=== PATIENT | female | born 1945 | race Asian ===

== ENCOUNTER 2017-03-23 09:16 | Day surgery (SDC) | payer MEDICARE, OTHER ==
[~2017-03-23] VITALS: Ht 160 cm; Wt 79.5 kg
[~2017-03-23 09:16] MED LIST: ASPI81 PO; ATOR10TA84 PO; CETI-260 PO; DICLOFENAC SODIUM 0.1% 2.5 ML OPHTHALMIC SOLUTION OD ONE; FOSI10 PO; METF500T4 PO; METO1TAB13 PO; MOXIFLOXACIN HCL 0.5% 3 ML OPHTHALMIC SOLUTION OD ONE; NIFE-4 PO; RINGERS SOLUTION,LACTATED 500 ML IV ONE; SITA25 PO; TELM20 PO
[2017-03-23] MEDS ORDERED: DICLOFENAC SODIUM 0.1% 2.5 ML OPHTHALMIC SOLUTION ONE (09:24)
[2017-03-23] MEDS ORDERED: MOXIFLOXACIN HCL 0.5% 3 ML OPHTHALMIC SOLUTION ONE (09:25)
[2017-03-23] MEDS ORDERED: TROPICAMIDE 1% 2 ML OPHTHALMIC SOLUTION ONE (09:25)
[2017-03-23] MEDS ORDERED: PHENYLEPHRINE HCL 2.5% 2 ML OPHTHALMIC SOLUTION ONE (09:25)
[2017-03-23] MEDS ORDERED: RINGERS SOLUTION,LACTATED 500 ML IV ONE (09:26)
[2017-03-23 10:13] LABS: GLUCOSE,POINT OF CARE 141 MG/DL (70-110)
[2017-03-23] MEDS: PHENYLEPHRINE HCL 2.5% 2 ML OPHTHALMIC SOLUTION OD SCH ×2 (10:18→10:23)
[2017-03-23] MEDS: TROPICAMIDE 1% 2 ML OPHTHALMIC SOLUTION OD SCH ×2 (10:18→10:23)
[2017-03-23] MEDS ORDERED: TETRACAINE HCL VISCOUS 0.5% 0.6 ML OPHTHALMIC SOLUTION OD ONE (12:00)
[2017-03-23] MEDS ORDERED: HYALURONATE SOD/CHONDROITIN SOD 0.5 ML VIAL IO ONE (12:00)
[2017-03-23] MEDS ORDERED: DEXAMETHASONE SOD PHOS 4 MG/ML VIAL IVP ONE (12:00)
[2017-03-23] MEDS ORDERED: POVIDONE-IODINE 10% 15 ML SOLUTION UD TP ONE (12:00)
[2017-03-23] MEDS ORDERED: FentaNYL CITRATE-PF 100 MCG/2 ML VIAL IVP ONE (12:00)
[2017-03-23] MEDS ORDERED: LIDOCAINE HCL/PF 1% 2 ML VIAL INJ ONE (12:00)
[2017-03-23] MEDS ORDERED: MIDAZOLAM HCL 2 MG/2 ML VIAL IVP ONE (12:00)
[2017-03-23] MEDS ORDERED: HYALURONATE SODIUM 12 MG/ML 0.8 ML SYRINGE IO ONE (12:00)
== END 2017-03-23 13:25 | disposition home or self-care (01) ==
LOC: SURGERY 09:16
PROVIDERS: ATTEND Specialist
DX: E11.36 Type 2 diabetes mellitus with diabetic cataract (principal); H25.011 Cortical age-related cataract, right eye; I10 Essential (primary) hypertension; E78.00 Pure hypercholesterolemia, unspecified; I44.0 Atrioventricular block, first degree; E66.3 Overweight; Z88.8 Allergy status to other drugs, medicaments and biological substances; Z98.890 Other specified postprocedural states; Z90.710 Acquired absence of both cervix and uterus
CPT/HCPCS: 66984; 82962; 93005; C1780; J1100; J2250; J3010; J3490 ×2; J7120

== ENCOUNTER → 2017-05-13 | Outpatient (CLI) | payer MEDICARE, OTHER ==
[~2017-05-13] MED LIST changes: -CETI-260 PO; +CETI-290 PO; -DICLOFENAC SODIUM 0.1% 2.5 ML OPHTHALMIC SOLUTION OD ONE; -MOXIFLOXACIN HCL 0.5% 3 ML OPHTHALMIC SOLUTION OD ONE; -RINGERS SOLUTION,LACTATED 500 ML IV ONE
[2017-05-13 09:17] LABS: BASOPHILS # (AUTO) 0.02 K/uL (0.00-0.20); BASOPHILS % (AUTO) 0.3 % (0.0-2.0); EOSINOPHILS % (AUTO) 1.64 % (1.0-6.0); HEMATOCRIT 33.9 % (36-46); HEMOGLOBIN 10.8 g/dL (12.0-16.0); LYMPHOCYTES # (AUTO) 1.9 K/uL (1.0-4.8); LYMPHOCYTES % (AUTO) 30.4 % (22.0-44.0); MEAN CORPUSCULAR HGB CONC 31.8 G/dL (31.0-37.0); MEAN CORPUSCULAR VOLUME 69 fL (80-100); MONOCYTES # (AUTO) 0.4 K/uL (0.1-1.0); MONOCYTES % (AUTO) 7.1 % (2.0-9.0); NEUTROPHILS # (AUTO) 3.8 K/uL (1.8-7.7); NEUTROPHILS % (AUTO) 60.7 % (40.0-70.0); PLATELET COUNT (AUTO) 217 K/uL (150-450); RED BLOOD CELL COUNT(AUTO) 4.89 MIL/uL (4.00-5.20); RED CELL DISTRIBUTION WIDTH 15.5 % (11.5-14.5); WHITE BLOOD COUNT (AUTO) 6.3 K/uL (4.5-11.0)
[2017-05-13 09:30] LABS: RBC MORPHOLOGY COMMENT ABNORMAL RBC MORPH
[2017-05-13 10:20] LABS: HEMOGLOBIN A1C 7.8 % (4.5-6.2)
[2017-05-13 10:27] LABS: ALBUMIN 3.5 g/dL (3.4-5.0); BILIRUBIN,TOTAL 0.5 mg/dL (0.1-1.0); CHOL/HDL RATIO 3.5 (3.9-5.7); CREATININE 1.4 mg/dL (0.60-1.30); POTASSIUM 4.7 mmol/L (3.5-5.1); THYROID STIMULATING HORMONE 1.37 uIU/mL (0.36-3.74); TOTAL PROTEIN, SERUM 8.5 g/dL (6.4-8.2)
[2017-05-17 16:10] LABS: CREATININE, URINE (mALB) 56.7 mg/dL (Not Estab.)
== END | disposition home or self-care (01) ==
LOC: LABPV 08:31
PROVIDERS: ATTEND Internal Medicine
DX: E11.9 Type 2 diabetes mellitus without complications (principal); I10 Essential (primary) hypertension; E78.2 Mixed hyperlipidemia
CPT/HCPCS: 82043; 82570; 83036; 84443

== ENCOUNTER → 2018-02-20 | Outpatient (CLI) | payer MEDICARE, OTHER ==
[~2018-02-20] MED LIST changes: -METF500T4 PO; +METF500T6 PO
[2018-02-20 10:53] LABS: BASOPHILS % (AUTO) 1.1 % (0.0-2.0); EOSINOPHILS % (AUTO) 2.9 % (1.0-6.0); HEMATOCRIT 34.1 % (36-46); HEMOGLOBIN 11.1 g/dL (12.0-16.0); LYMPHOCYTES # (AUTO) 1.7 K/uL (1.0-4.8); MEAN CORPUSCULAR HEMOGLOBIN 22.4 pg (26.0-34.0); MEAN CORPUSCULAR HGB CONC 32.4 G/dL (31.0-37.0); MEAN CORPUSCULAR VOLUME 69 fL (80-100); MONOCYTES # (AUTO) 0.4 K/uL (0.1-1.0); MONOCYTES % (AUTO) 8.9 % (2.0-9.0); NEUTROPHILS # (AUTO) 2.5 K/uL (1.8-7.7); NEUTROPHILS % (AUTO) 52.1 % (40.0-70.0); PLATELET COUNT (AUTO) 188 K/uL (150-450); RED BLOOD CELL COUNT(AUTO) 4.94 MIL/uL (4.00-5.20); RED CELL DISTRIBUTION WIDTH 15.4 % (11.5-14.5)
[2018-02-20 11:25] LABS: ALBUMIN 3.5 g/dL (3.4-5.0); BILIRUBIN,TOTAL 0.5 mg/dL (0.1-1.0); CALCIUM, TOTAL 9.3 mg/dL (8.8-10.5); CHOL/HDL RATIO 3.5 (3.9-5.7); CREATININE 1.69 mg/dL (0.60-1.30); POTASSIUM 4.8 mmol/L (3.5-5.1); THYROID STIMULATING HORMONE 1.41 uIU/mL (0.36-3.74); TOTAL PROTEIN, SERUM 8.1 g/dL (6.4-8.2)
[2018-02-20 11:37] LABS: HEMOGLOBIN A1C 6.3 % (4.5-6.2)
== END | disposition home or self-care (01) ==
LOC: LABPV 07:51
PROVIDERS: ATTEND Internal Medicine
DX: I12.9 Hypertensive chronic kidney disease with stage 1 through stage 4 chronic kidney disease, or unspecified chronic kidney disease (principal); E11.9 Type 2 diabetes mellitus without complications; E78.5 Hyperlipidemia, unspecified
CPT/HCPCS: 83036; 84443

== ENCOUNTER → 2018-06-26 | Outpatient (CLI) | payer MEDICARE, OTHER ==
[~2018-06-26] MED LIST changes: -FOSI10 PO; +FOSI10TA3 PO; +METF-960 PO; -METF500T6 PO
[2018-06-26 10:48] LABS: BASOPHILS % (AUTO) 0.6 % (0.0-2.0); EOSINOPHILS % (AUTO) 1.1 % (1.0-6.0); HEMATOCRIT 32.9 % (36-46); HEMOGLOBIN 10.2 g/dL (12.0-16.0); LYMPHOCYTES # (AUTO) 1.3 K/uL (1.0-4.8); LYMPHOCYTES % (AUTO) 35.4 % (22.0-44.0); MEAN CORPUSCULAR HEMOGLOBIN 22.8 pg (26.0-34.0); MEAN CORPUSCULAR HGB CONC 31.1 G/dL (31.0-37.0); MEAN CORPUSCULAR VOLUME 73 fL (80-100); MONOCYTES # (AUTO) 0.5 K/uL (0.1-1.0); MONOCYTES % (AUTO) 12.2 % (2.0-9.0); NEUTROPHILS # (AUTO) 1.9 K/uL (1.8-7.7); NEUTROPHILS % (AUTO) 50.7 % (40.0-70.0); PLATELET COUNT (AUTO) 174 K/uL (150-450); RED BLOOD CELL COUNT(AUTO) 4.49 MIL/uL (4.00-5.20)
[2018-06-26 11:37] LABS: HEMOGLOBIN A1C 5.6 % (4.5-6.2)
[2018-06-26 11:43] LABS: ALBUMIN 3.5 g/dL (3.4-5.0); BILIRUBIN,TOTAL 0.3 mg/dL (0.1-1.0); CALCIUM, TOTAL 8.5 mg/dL (8.8-10.5); CHOL/HDL RATIO 2.3 (3.9-5.7); CREATININE 1.65 mg/dL (0.60-1.30); POTASSIUM 4.6 mmol/L (3.5-5.1); TOTAL PROTEIN, SERUM 7.8 g/dL (6.4-8.2)
[2018-06-26 12:11] LABS: URIC ACID 7.4 mg/dL (2.6-7.2)
== END | disposition home or self-care (01) ==
LOC: LABPV 08:17
PROVIDERS: ATTEND Internal Medicine
DX: M10.9 Gout, unspecified (principal); E11.9 Type 2 diabetes mellitus without complications; I10 Essential (primary) hypertension
CPT/HCPCS: 83036; 84550; 84681

== ENCOUNTER → 2018-11-06 | Outpatient (CLI) | payer MEDICARE, OTHER ==
[~2018-11-06] MED LIST changes: -CETI-290 PO; +CETI10TA59 PO
[2018-11-06 10:10] LABS: CALCIUM, TOTAL 9.5 mg/dL (8.8-10.5); CREATININE 1.8 mg/dL (0.60-1.30); PHOSPHORUS 4.1 mg/dL (2.5-4.9); POTASSIUM 4.6 mmol/L (3.5-5.1)
[2018-11-06 10:13] LABS: CREATININE,SERUM FOR CRCL 1.8 mg/dL (0.60-1.30); CREATININE,URINE 79.9 mg/dL (30.0-125.0)
== END | disposition home or self-care (01) ==
LOC: LABPV 08:11
PROVIDERS: ATTEND Internal Medicine Nephrology
DX: I12.9 Hypertensive chronic kidney disease with stage 1 through stage 4 chronic kidney disease, or unspecified chronic kidney disease (principal); E11.22 Type 2 diabetes mellitus with diabetic chronic kidney disease; N18.9 Chronic kidney disease, unspecified; E78.00 Pure hypercholesterolemia, unspecified; M10.9 Gout, unspecified; Z90.710 Acquired absence of both cervix and uterus; Z88.5 Allergy status to narcotic agent
CPT/HCPCS: 81050; 82575; 83970; 84100; 84156; 84300

== ENCOUNTER → 2018-11-24 | Outpatient (CLI) | payer MEDICARE, OTHER | END | disposition home or self-care (01) | LOC: RADPV 10:59 | PROVIDERS: ATTEND Internal Medicine Nephrology | DX: I12.9 Hypertensive chronic kidney disease with stage 1 through stage 4 chronic kidney disease, or unspecified chronic kidney disease (principal); E11.22 Type 2 diabetes mellitus with diabetic chronic kidney disease; N18.9 Chronic kidney disease, unspecified | CPT/HCPCS: 76770 ==

== ENCOUNTER → 2019-01-29 | Outpatient (CLI) | payer MEDICARE, OTHER ==
[2019-01-29 11:25] LABS: HEMATOCRIT 36.6 % (36-46); HEMOGLOBIN 11.5 g/dL (12.0-16.0)
[2019-01-29 11:35] LABS: CREATININE,URINE RANDOM 202.9 mg/dL (30.0-125.0); PROTEIN,URINE RANDOM 20 mg/dL (0-11.9)
[2019-01-29 11:39] LABS: APPEARANCE,URINE CLEAR (CLEAR); BILIRUBIN,URINE NEGATIVE (NEGATIVE); GLUCOSE, URINE (UA) NEGATIVE (NEGATIVE); KETONES,URINE NEGATIVE (NEGATIVE); LEUKOCYTE ESTERASE ,URINE NEGATIVE (NEGATIVE); NITRATE,URINE NEGATIVE (NEGATIVE); OCCULT BLOOD,URINE NEGATIVE (NEGATIVE); PROTEIN,URINE NEGATIVE (NEGATIVE); UROBILINOGEN,URINE 0.2 mg/dL (<=1.0)
[2019-01-29 11:41] LABS: CALCIUM, TOTAL 9.6 mg/dL (8.8-10.5); CREATININE 1.66 mg/dL (0.60-1.30); POTASSIUM 4.2 mmol/L (3.5-5.1)
[2019-01-29 11:51] LABS: % IRON SATURATION 18.2 % (22-44)
[2019-01-29 12:55] LABS: FOLATE SERUM 17.8 ng/mL (5.4-)
== END | disposition home or self-care (01) ==
LOC: LABPV 07:54
PROVIDERS: ATTEND Internal Medicine Nephrology
DX: I12.9 Hypertensive chronic kidney disease with stage 1 through stage 4 chronic kidney disease, or unspecified chronic kidney disease (principal); E11.22 Type 2 diabetes mellitus with diabetic chronic kidney disease; N18.3 Chronic kidney disease, stage 3 (moderate); D63.1 Anemia in chronic kidney disease
CPT/HCPCS: 82570; 82607; 82746; 83540; 83550; 83970; 84156; 85014; 85018

== ENCOUNTER → 2019-04-30 | Outpatient (CLI) | payer MEDICARE, OTHER ==
[~2019-04-30] MED LIST changes: -FOSI10TA3 PO; +FOSI10TA6 PO; -NIFE-4 PO; +NIFE-64 PO
[2019-04-30 12:44] LABS: HEMOGLOBIN A1C 6.5 % (4.5-6.2)
[2019-04-30 12:55] LABS: ALBUMIN 3.7 g/dL (3.4-5.0); BILIRUBIN,TOTAL 0.4 mg/dL (0.1-1.0); CALCIUM, TOTAL 9.5 mg/dL (8.8-10.5); CHOL/HDL RATIO 2.8 (3.9-5.7); CREATININE 1.55 mg/dL (0.60-1.30); POTASSIUM 4.3 mmol/L (3.5-5.1); TOTAL PROTEIN, SERUM 8.5 g/dL (6.4-8.2)
[2019-04-30 13:28] LABS: CREATININE,URINE RANDOM 178.2 mg/dL (30.0-125.0)
== END | disposition home or self-care (01) ==
LOC: LABPV 08:16
PROVIDERS: ATTEND Internal Medicine Nephrology
DX: E11.22 Type 2 diabetes mellitus with diabetic chronic kidney disease (principal); I12.9 Hypertensive chronic kidney disease with stage 1 through stage 4 chronic kidney disease, or unspecified chronic kidney disease; N18.9 Chronic kidney disease, unspecified; E78.49 Other hyperlipidemia
CPT/HCPCS: 82570; 83036; 84156

== ENCOUNTER → 2019-09-11 | Outpatient (CLI) | payer MEDICARE, OTHER ==
[~2019-09-11] MED LIST changes: +ASPI-728 PO; -ASPI81 PO
[2019-09-11 11:56] LABS: CALCIUM, TOTAL 9.4 mg/dL (8.8-10.5); CREATININE 1.56 mg/dL (0.60-1.30); POTASSIUM 4.4 mmol/L (3.5-5.1)
[2019-09-11 12:12] LABS: CREATININE,URINE RANDOM 147.2 mg/dL (30.0-125.0)
== END | disposition home or self-care (01) ==
LOC: LABPV 10:06
PROVIDERS: ATTEND Internal Medicine Nephrology
DX: I10 Essential (primary) hypertension (principal); E11.9 Type 2 diabetes mellitus without complications
CPT/HCPCS: 82570; 84156

== ENCOUNTER → 2020-03-11 | Outpatient (CLI) | payer MEDICARE, OTHER ==
[~2020-03-11] MED LIST changes: +CETI-450 PO; -CETI10TA59 PO
[2020-03-11 09:43] LABS: HEMATOCRIT 33.8 % (36-46); HEMOGLOBIN 10.6 g/dL (12.0-16.0)
[2020-03-11 09:56] LABS: CALCIUM, TOTAL 9.1 mg/dL (8.8-10.5); CHOL/HDL RATIO 2.3 (3.9-5.7); CREATININE 1.87 mg/dL (0.60-1.30); PHOSPHORUS 4.1 mg/dL (2.5-4.9); POTASSIUM 4.3 mmol/L (3.5-5.1)
== END | disposition home or self-care (01) ==
LOC: LABPV 08:06
PROVIDERS: ATTEND Internal Medicine Nephrology
DX: N18.9 Chronic kidney disease, unspecified (principal); E78.5 Hyperlipidemia, unspecified; D63.1 Anemia in chronic kidney disease
CPT/HCPCS: 83970; 84100; 85014; 85018

== ENCOUNTER → 2020-05-12 | Outpatient (CLI) | payer MEDICARE, OTHER ==
[2020-05-12 09:23] LABS: ALBUMIN 3.6 g/dL (3.4-5.0); BILIRUBIN,TOTAL 0.5 mg/dL (0.1-1.0); CALCIUM, TOTAL 9.1 mg/dL (8.8-10.5); CREATININE 1.48 mg/dL (0.60-1.30); TOTAL PROTEIN, SERUM 7.5 g/dL (6.4-8.2)
[2020-05-12 09:26] LABS: HEMOGLOBIN A1C 6.2 % (3.8-5.6)
[2020-05-12 09:35] LABS: BILIRUBIN,URINE NEGATIVE (NEGATIVE); GLUCOSE, URINE (UA) NEGATIVE (NEGATIVE); KETONES,URINE NEGATIVE (NEGATIVE); LEUKOCYTE ESTERASE ,URINE NEGATIVE (NEGATIVE); NITRATE,URINE NEGATIVE (NEGATIVE); OCCULT BLOOD,URINE NEGATIVE (NEGATIVE); PH,URINE 5.5 (5.0-8.0); PROTEIN,URINE NEGATIVE (NEGATIVE); UROBILINOGEN,URINE 0.2 mg/dL (<=1.0)
[2020-05-12 09:36] LABS: APPEARANCE,URINE HAZY (CLEAR)
== END | disposition home or self-care (01) ==
LOC: LABPV 08:36
PROVIDERS: ATTEND Internal Medicine Nephrology
DX: E11.22 Type 2 diabetes mellitus with diabetic chronic kidney disease (principal); N18.30 Chronic kidney disease, stage 3 unspecified
CPT/HCPCS: 83036

== ENCOUNTER → 2020-09-15 | Outpatient (CLI) | payer MEDICARE, OTHER ==
[~2020-09-15] MED LIST changes: +ASPI-1450 PO; -ASPI-728 PO
[2020-09-15 08:37] LABS: HEMATOCRIT 35.5 % (36-46); HEMOGLOBIN 11.2 g/dL (12.0-16.0)
[2020-09-15 08:54] LABS: CALCIUM, TOTAL 9.5 mg/dL (8.8-10.5); CHOL/HDL RATIO 2.3 (3.9-5.7); CREATININE 1.49 mg/dL (0.60-1.30); PHOSPHORUS 3.6 mg/dL (2.5-4.9); POTASSIUM 4.3 mmol/L (3.5-5.1)
[2020-09-15 08:56] LABS: CREATININE,URINE RANDOM 205.5 mg/dL (30.0-125.0)
[2020-09-15 08:56] LABS: HEMOGLOBIN A1C 6.3 % (3.8-5.6)
== END | disposition home or self-care (01) ==
LOC: LABPV 07:40
PROVIDERS: ATTEND Internal Medicine Nephrology
DX: E11.22 Type 2 diabetes mellitus with diabetic chronic kidney disease (principal); N18.30 Chronic kidney disease, stage 3 unspecified; D63.1 Anemia in chronic kidney disease; E78.5 Hyperlipidemia, unspecified
CPT/HCPCS: 82570; 83036; 83970; 84100; 84156; 85014; 85018

== ENCOUNTER → 2021-03-09 | Outpatient (CLI) | payer MEDICARE, OTHER ==
[2021-03-09 12:39] LABS: BILIRUBIN,URINE NEGATIVE (NEGATIVE); GLUCOSE, URINE (UA) NEGATIVE (NEGATIVE); KETONES,URINE TRACE mg/dL (NEGATIVE); LEUKOCYTE ESTERASE ,URINE NEGATIVE (NEGATIVE); NITRATE,URINE NEGATIVE (NEGATIVE); OCCULT BLOOD,URINE NEGATIVE (NEGATIVE); PH,URINE 5.5 (5.0-8.0); PROTEIN,URINE NEGATIVE (NEGATIVE); UROBILINOGEN,URINE 0.2 mg/dL (<=1.0)
[2021-03-09 12:40] LABS: APPEARANCE,URINE HAZY (CLEAR)
[2021-03-09 12:45] LABS: ALBUMIN 3.5 g/dL (3.4-5.0); BILIRUBIN,TOTAL 0.5 mg/dL (0.1-1.0); CALCIUM, TOTAL 8.9 mg/dL (8.8-10.5); CREATININE 1.45 mg/dL (0.60-1.30); POTASSIUM 4.2 mmol/L (3.5-5.1); TOTAL PROTEIN, SERUM 8.6 g/dL (6.4-8.2)
== END | disposition home or self-care (01) ==
LOC: LABPV 08:37
PROVIDERS: ATTEND Internal Medicine Nephrology
DX: E11.22 Type 2 diabetes mellitus with diabetic chronic kidney disease (principal); N18.30 Chronic kidney disease, stage 3 unspecified
CPT/HCPCS: 80053; 81003

== ENCOUNTER → 2021-04-03 | Outpatient (CLI) | payer MEDICARE, OTHER ==
[2021-04-03 12:17] LABS: BASOPHILS % (AUTO) 0.5 % (0.0-2.0); EOSINOPHILS % (AUTO) 1.9 % (1.0-6.0); LYMPHOCYTES # (AUTO) 1.8 K/uL (1.0-4.8); LYMPHOCYTES % (AUTO) 27.3 % (22.0-44.0); MEAN CORPUSCULAR HEMOGLOBIN 21.8 pg (26.0-34.0); MEAN CORPUSCULAR HGB CONC 30.6 G/dL (31.0-37.0); MEAN CORPUSCULAR VOLUME 71 fL (80-100); MONOCYTES # (AUTO) 0.7 K/uL (0.1-1.0); NEUTROPHILS # (AUTO) 3.9 K/uL (1.8-7.7); NEUTROPHILS % (AUTO) 59.3 % (40.0-70.0); PLATELET COUNT (AUTO) 204 K/uL (150-450); RED BLOOD CELL COUNT(AUTO) 5.05 MIL/uL (4.00-5.20); RED CELL DISTRIBUTION WIDTH 15.5 % (11.5-14.5)
[2021-04-03 12:31] LABS: HEMOGLOBIN A1C 6.7 % (3.8-5.6)
[2021-04-03 12:58] LABS: ALBUMIN 3.3 g/dL (3.4-5.0); BILIRUBIN,TOTAL 0.6 mg/dL (0.1-1.0); CALCIUM, TOTAL 8.7 mg/dL (8.8-10.5); CHOL/HDL RATIO 2.4 (3.9-5.7); CREATININE 1.57 mg/dL (0.60-1.30); POTASSIUM 4.1 mmol/L (3.5-5.1); THYROID STIMULATING HORMONE 1.11 uIU/mL (0.36-3.74); TOTAL PROTEIN, SERUM 8.5 g/dL (6.4-8.2)
== END | disposition home or self-care (01) ==
LOC: MSR 09:19
PROVIDERS: ATTEND Internal Medicine
DX: M19.011 Primary osteoarthritis, right shoulder (principal); I10 Essential (primary) hypertension; E78.5 Hyperlipidemia, unspecified; E11.9 Type 2 diabetes mellitus without complications; M10.9 Gout, unspecified; R94.6 Abnormal results of thyroid function studies
CPT/HCPCS: 80053; 80061; 82043; 82570; 83036; 84443; 84550; 85025

== ENCOUNTER → 2021-06-15 | Outpatient (CLI) | payer MEDICARE, OTHER ==
[~2021-06-15] MED LIST changes: -FOSI10TA6 PO; +FOSI10TA70 PO; +METF-1211 PO; -METF-960 PO
[2021-06-15 09:40] LABS: HEMOGLOBIN A1C 6.6 % (3.8-5.6)
[2021-06-15 09:45] LABS: CALCIUM, TOTAL 9.2 mg/dL (8.8-10.5); CHOL/HDL RATIO 2.3 (3.9-5.7); CREATININE 1.44 mg/dL (0.60-1.30); POTASSIUM 4.5 mmol/L (3.5-5.1)
== END | disposition home or self-care (01) ==
LOC: LABPV 07:56
PROVIDERS: ATTEND Internal Medicine Nephrology
DX: E11.22 Type 2 diabetes mellitus with diabetic chronic kidney disease (principal); N18.30 Chronic kidney disease, stage 3 unspecified
CPT/HCPCS: 80048; 80061; 83036

== ENCOUNTER → 2021-10-21 | Outpatient (CLI) | payer MEDICARE, OTHER ==
[2021-10-21 10:21] LABS: HEMATOCRIT 35.7 % (36-46); HEMOGLOBIN 11.3 g/dL (12.0-16.0)
[2021-10-21 10:28] LABS: CALCIUM, TOTAL 9.4 mg/dL (8.8-10.5); CREATININE 1.47 mg/dL (0.60-1.30); POTASSIUM 4.6 mmol/L (3.5-5.1)
[2021-10-21 10:51] LABS: CREATININE,URINE RANDOM 242.9 mg/dL (30.0-125.0)
== END | disposition home or self-care (01) ==
LOC: LABPV 08:52
PROVIDERS: ATTEND Internal Medicine Nephrology
DX: E11.22 Type 2 diabetes mellitus with diabetic chronic kidney disease (principal); N18.30 Chronic kidney disease, stage 3 unspecified; D63.1 Anemia in chronic kidney disease
CPT/HCPCS: 80048; 82570; 84156; 85014; 85018

== ENCOUNTER → 2022-04-21 | Outpatient (CLI) | payer MEDICARE, OTHER ==
[2022-04-21 09:16] LABS: HEMOGLOBIN A1C 7.1 % (3.8-5.6)
[2022-04-21 09:17] LABS: ALBUMIN 3.4 g/dL (3.4-5.0); BILIRUBIN,TOTAL 0.5 mg/dL (0.1-1.0); CALCIUM, TOTAL 9.3 mg/dL (8.8-10.5); CHOL/HDL RATIO 2.5 (3.9-5.7); CREATININE 1.63 mg/dL (0.60-1.30); POTASSIUM 4.3 mmol/L (3.5-5.1); TOTAL PROTEIN, SERUM 8.6 g/dL (6.4-8.2)
== END | disposition home or self-care (01) ==
LOC: LABPV 08:39
PROVIDERS: ATTEND Internal Medicine Nephrology
DX: E11.22 Type 2 diabetes mellitus with diabetic chronic kidney disease (principal); N18.30 Chronic kidney disease, stage 3 unspecified; E78.5 Hyperlipidemia, unspecified
CPT/HCPCS: 80053; 80061; 83036

== ENCOUNTER 2022-06-08 09:31 | Emergency (ER) | payer MEDICARE, OTHER ==
[~2022-06-08] VITALS: Ht 160 cm; Wt 68.2 kg
[~2022-06-08 09:31] MED LIST changes: +ATOR10TA PO; -ATOR10TA84 PO
[2022-06-08 16:32] VITALS: BP 142/89
== END 2022-06-08 16:33 | disposition home or self-care (01) ==
LOC: EMS 09:40
DX: S00.83XA Contusion of other part of head, initial encounter (principal); M25.511 Pain in right shoulder; E11.9 Type 2 diabetes mellitus without complications; I10 Essential (primary) hypertension; Z88.5 Allergy status to narcotic agent; W10.8XXA Fall (on) (from) other stairs and steps, initial encounter; Y93.89 Activity, other specified; Y92.89 Other specified places as the place of occurrence of the external cause; Y99.8 Other external cause status
CPT/HCPCS: 70450; 72040; 72125; 99284

== ENCOUNTER → 2022-08-30 | Outpatient (CLI) | payer MEDICARE, OTHER ==
[2022-08-30 10:15] LABS: HEMATOCRIT 38.5 % (36-46); HEMOGLOBIN 12.1 g/dL (12.0-16.0)
[2022-08-30 10:28] LABS: CALCIUM, TOTAL 9.1 mg/dL (8.8-10.5); CREATININE 1.36 mg/dL (0.60-1.30); POTASSIUM 4.1 mmol/L (3.5-5.1)
[2022-08-30 10:33] LABS: CREATININE,URINE RANDOM 166.1 mg/dL (30.0-125.0); PROTEIN,URINE RANDOM 39 mg/dL (0-11.9)
[2022-08-30 10:46] LABS: APPEARANCE,URINE CLEAR (CLEAR); BILIRUBIN,URINE NEGATIVE (NEGATIVE); GLUCOSE, URINE (UA) NEGATIVE (NEGATIVE); KETONES,URINE NEGATIVE (NEGATIVE); LEUKOCYTE ESTERASE ,URINE NEGATIVE (NEGATIVE); NITRATE,URINE NEGATIVE (NEGATIVE); OCCULT BLOOD,URINE NEGATIVE (NEGATIVE); PH,URINE 5.5 (5.0-8.0); PROTEIN,URINE TRACE mg/dL (NEGATIVE); SPECIFIC GRAVITIY, URINE 1.024 (1.003-1.030); UROBILINOGEN,URINE <=1.0 mg/dL (<=1.0)
[2022-08-30 10:58] LABS: BACTERIA,URINE None Seen /HPF (None Seen); RBC,URINE None Seen /HPF (0-2); SQUAMOUS EPITHELIAL CELL,UR Moderate /LPF (None Seen); WBC,URINE 0-2 /HPF (0-5)
== END | disposition home or self-care (01) ==
LOC: LABMN 09:43
PROVIDERS: ATTEND Internal Medicine Nephrology
DX: E11.22 Type 2 diabetes mellitus with diabetic chronic kidney disease (principal); N18.30 Chronic kidney disease, stage 3 unspecified; D63.1 Anemia in chronic kidney disease
CPT/HCPCS: 80048; 81001; 82570; 83036; 84156; 85014; 85018

== ENCOUNTER → 2023-01-03 | Outpatient (CLI) | payer MEDICARE, OTHER ==
[2023-01-03 08:33] LABS: CREATININE,URINE RANDOM 206.1 mg/dL (30.0-125.0)
[2023-01-03 08:43] LABS: CREATININE 1.23 mg/dL (0.60-1.30); POTASSIUM 4.4 mmol/L (3.5-5.1)
[2023-01-03 08:44] LABS: CALCIUM, TOTAL 9.3 mg/dL (8.8-10.5); CHOL/HDL RATIO 2.7 (3.9-5.7)
== END | disposition home or self-care (01) ==
LOC: LABMN 07:54
PROVIDERS: ATTEND Internal Medicine Nephrology
DX: E11.22 Type 2 diabetes mellitus with diabetic chronic kidney disease (principal); N18.30 Chronic kidney disease, stage 3 unspecified
CPT/HCPCS: 80048; 80061; 82570; 84156

== ENCOUNTER → 2023-05-02 | Outpatient (CLI) | payer MEDICARE, OTHER ==
[2023-05-02 09:50] LABS: HEMOGLOBIN A1C 7.3 % (3.8-5.6)
[2023-05-02 10:16] LABS: ALBUMIN 3.5 g/dL (3.4-5.0); BILIRUBIN,TOTAL 0.5 mg/dL (0.1-1.0); CALCIUM, TOTAL 9.1 mg/dL (8.8-10.5); CREATININE 1.37 mg/dL (0.60-1.30); POTASSIUM 4.2 mmol/L (3.5-5.1); TOTAL PROTEIN, SERUM 8.3 g/dL (6.4-8.2)
== END | disposition home or self-care (01) ==
LOC: LABMN 09:20
PROVIDERS: ATTEND Internal Medicine Nephrology
DX: E11.22 Type 2 diabetes mellitus with diabetic chronic kidney disease (principal); E11.69 Type 2 diabetes mellitus with other specified complication; N18.30 Chronic kidney disease, stage 3 unspecified
CPT/HCPCS: 80053; 83036

== ENCOUNTER → 2023-08-29 | Outpatient (CLI) | payer MEDICARE, OTHER ==
[2023-08-29 08:37] LABS: HEMATOCRIT 38.1 % (36-46); HEMOGLOBIN 11.7 g/dL (12.0-16.0)
[2023-08-29 08:43] LABS: CREATININE,URINE RANDOM 165.2 mg/dL (30.0-125.0)
[2023-08-29 09:06] LABS: CALCIUM, TOTAL 9.3 mg/dL (8.8-10.5); CHOL/HDL RATIO 2.5 (3.9-5.7); CREATININE 1.31 mg/dL (0.60-1.30); PHOSPHORUS 3.9 mg/dL (2.5-4.9); POTASSIUM 4.5 mmol/L (3.5-5.1)
[2023-08-30 03:06] LABS: PARATHYROID HORMONE INTACT 41 pg/mL (15-65)
== END | disposition home or self-care (01) ==
LOC: LABMN 08:04
PROVIDERS: ATTEND Internal Medicine Nephrology
DX: E11.22 Type 2 diabetes mellitus with diabetic chronic kidney disease (principal); N18.30 Chronic kidney disease, stage 3 unspecified; D63.1 Anemia in chronic kidney disease; E78.5 Hyperlipidemia, unspecified
CPT/HCPCS: 80048; 80061; 82570; 83970; 84100; 84156; 85014; 85018

== ENCOUNTER → 2024-01-02 | Outpatient (CLI) | payer MEDICARE, OTHER ==
[2024-01-02 09:14] LABS: APPEARANCE,URINE CLEAR (CLEAR); BILIRUBIN,URINE NEGATIVE (NEGATIVE); COLOR,URINE LIGHT YELLOW (YELLOW); GLUCOSE, URINE (UA) NEGATIVE (NEGATIVE); KETONES,URINE NEGATIVE (NEGATIVE); LEUKOCYTE ESTERASE ,URINE NEGATIVE (NEGATIVE); NITRATE,URINE NEGATIVE (NEGATIVE); OCCULT BLOOD,URINE NEGATIVE (NEGATIVE); PH,URINE 5.5 (5.0-8.0); PROTEIN,URINE TRACE mg/dL (NEGATIVE); UROBILINOGEN,URINE <=1.0 mg/dL (<=1.0)
[2024-01-02 09:28] LABS: BASOPHILS % (AUTO) 1.3 % (0.0-2.0); EOSINOPHILS % (AUTO) 1.8 % (1.0-6.0); HEMOGLOBIN 11.7 g/dL (12.0-16.0); LYMPHOCYTES % (AUTO) 29.1 % (22.0-44.0); MEAN CORPUSCULAR HEMOGLOBIN 22.1 pg (26.0-34.0); MEAN CORPUSCULAR HGB CONC 31.8 G/dL (31.0-37.0); MEAN CORPUSCULAR VOLUME 70 fL (80-100); MONOCYTES # (AUTO) 0.6 K/uL (0.1-1.0); MONOCYTES % (AUTO) 8.3 % (2.0-9.0); NEUTROPHILS # (AUTO) 4.1 K/uL (1.8-7.7); NEUTROPHILS % (AUTO) 59.5 % (40.0-70.0); PLATELET COUNT (AUTO) 227 K/uL (150-450); RED BLOOD CELL COUNT(AUTO) 5.32 MIL/uL (4.00-5.20); RED CELL DISTRIBUTION WIDTH 15.4 % (11.5-14.5); WHITE BLOOD COUNT (AUTO) 6.8 K/uL (4.5-11.0)
[2024-01-02 09:31] LABS: RBC MORPHOLOGY COMMENT ABNORMAL RBC MORPH
[2024-01-02 09:39] LABS: ALBUMIN 3.5 g/dL (3.4-5.0); BILIRUBIN,TOTAL 0.7 mg/dL (0.1-1.0); CALCIUM, TOTAL 9.5 mg/dL (8.8-10.5); CHOL/HDL RATIO 2.6 (3.9-5.7); CREATININE 1.35 mg/dL (0.60-1.30); POTASSIUM 4.3 mmol/L (3.5-5.1); THYROID STIMULATING HORMONE 1.43 uIU/mL (0.36-3.74); TOTAL PROTEIN, SERUM 9.1 g/dL (6.4-8.2)
[2024-01-02 09:48] LABS: HEMOGLOBIN A1C 7.4 % (3.8-5.6)
[2024-01-02 10:48] LABS: CREATININE,URINE RANDOM 145.7 mg/dL (30.0-125.0)
[2024-01-03 13:07] LABS: CREATININE, URINE (mALB) 130.6 mg/dL (Not Estab.)
== END | disposition home or self-care (01) ==
LOC: LABMN 08:38
PROVIDERS: ATTEND Internal Medicine Nephrology
DX: E11.22 Type 2 diabetes mellitus with diabetic chronic kidney disease (principal); N18.30 Chronic kidney disease, stage 3 unspecified; E78.5 Hyperlipidemia, unspecified
CPT/HCPCS: 80053; 80061; 81003; 82043; 82570; 83036; 84443; 85025